=== PATIENT | female | born 1955 | race Caucasian/White ===

== ENCOUNTER 2016-11-08 11:41 | Emergency (ER) | payer OTHER ==
[~2016-11-08 11:41] MED LIST: B-CO1TAB29; CALC500C70 PO; CLB/200 PO; CYAN100048 IM; EFF75 PO; ERGO500037 PO; FERR1TAB39; MULT-506 PO; OMEP20CA9 PO
[2016-11-08 11:43] VITALS: TEMP 36.6; Ht 160 cm
[2016-11-08] MEDS ORDERED: CHOL100010 PO (11:56)
[2016-11-08] MEDS ORDERED: CARI350T28 PO (11:56)
[2016-11-08] MEDS ORDERED: SODIUM CHLORIDE 0.9% 1000ML 1,000 ML IV STA (12:12)
[2016-11-08] MEDS ORDERED: ONDANSETRON INJ 2 MG/ML 2 ML VIAL IV STA (12:12)
[2016-11-08] MEDS ORDERED: DEXAMETHASONE SOD INJ 10 MG/ML VIAL IV ONE (12:15)
--- NOTE | 2016-11-08 12:23 | EMERGENCY ROOM VISIT NOTE ---
History Report prepared by Andriy: Galina Smith Under the Supervision of: Wojciech RyanO. First contact with patient: 11:58 Chief Complaint: HEAD PAIN Stated Complaint: HEAD PAIN History of Present Illness The patient is a 61 year old female who presents to the Emergency Room with complaints of persistent neck pain that began 10 days ago. She currently rates her discomfort as a 10/10 in severity. The patient states that 10 days ago she started noticing neck pain and stiffness, but thought that it would go away, but it never did. She notes spasms, and that her pain worsens with movement. The patient states that her pain radiates up into her head and denies ever having pain like this in the past. She denies any fever, chills, ear ache, chest pain, shortness of breath, headache, nausea, or vomiting. The patient notes difficulty turning her neck secondary to pain. She denies any weakness or numbness in her arms and legs. The patient notes that she has a long history of chronic back problems. She states that she has had several surgeries and notes degenerative disc disease. The patient states that she has tried taking a muscle relaxer twice without relief of her symptoms, and has additionally tried heat and ice. The patient denies any recent injury. Source of History: patient Onset: 10 days ago Position: neck Symptom Intensity: 10/10 Quality: other (spasms) Timing: other (persistent) Modifying Factors (Worsening): movement Associated Symptoms: No SOB, No chest pain, No chills, No fevers, No headache, No nausea, No vomiting Review of Systems See HPI for pertinent positives & negatives. A total of 10 systems reviewed and were otherwise negative. Past Medical & Surgical Medical Problems: (1) Osteoarthritis Surgical Problems: (1) H/O cervical spine surgery (2) H/O: hysterectomy (3) History of appendectomy (4) Previous section (5) S/P gastric bypass (6) S/p total knee replacement, bilateral (7) Status post lumbar surgery Family History Cancer Diabetes mellitus Heart disease Hypertension Kidney disease Kidney stones Lung disease Social History Smoking Status: Former Smoker Smokeless Tobacco Use: No Alcohol Use: occasionally Marital Status: Housing Status: lives with family Occupation Status: other Current/Historical Medications Scheduled Calcium/Vitamin D (Os-M[place] 500 Plus D), 1 TAB PO DAILY Celecoxib (CeleBREX), 1 CAP PO DAILY Cholecalciferol (Vitamin D), 1 TAB PO DAILY Multivitamin (Multivitamin), 1 TAB PO DAILY Omeprazole (Prilosec), 1 CAP PO DAILY Prednisone (Prednisone Tab), 40 MG PO DAILY Venlafaxine Hcl (Effexor), 75 MG PO DAILY Scheduled PRN Carisoprodol (Soma), 350 MG PO DAILY PRN for Pain Oxycodone Immediate Rel Tab (Roxicodone Ir), 1-2 TAB PO Q4H PRN for Severe Pain Miscellaneous Medications B-Complex Vitamins (Vitamin B-Complex) Cyanocobalamin (Vitamin B-12) Ferrous Sulfate Dried (Feosol) Allergies Coded Allergies: Ciprofloxacin (Unverified Allergy, Mild, HIVES, 11/08/16) Physical Exam Vital Signs Date Time Temp Pulse Resp B/P Pulse Ox O2 Delivery O2 Flow Rate FiO2 11/08/16 13:36 102 18 143/83 94 Room Air 11/08/16 11:43 36.6 108 20 163/104 96 Room Air Physical Exam GENERAL: Patient is awake, alert, somewhat anxious and uncomfortable appearing. EYES: The conjunctivae are clear. The pupils are round and reactive. EARS, NOSE, MOUTH AND THROAT: The nose is without any evidence of any deformity. Mucous membranes are moist tongue is midline. TMs clear bilaterally. NECK: No anterior swelling or tenderness. Significant muscle spasm and tenderness over right perivertebral musculature. No midline tenderness noted. Range of motion is significantly decreased secondary to spasm. RESPIRATORY: Normal respiratory effort is noted there is no evidence of wheezing rhonchi or rales CARDIOVASCULAR: Regular rate and rhythm noted there no murmurs rubs or gallops normal S1 normal S2 GASTROINTESTINAL: The abdomen is soft. Bowel sounds are present in all quadrants. Abdomen is nontender PELVIS: The Pelvis is stable. No tenderness to palpation is noted. SKIN: There is no obvious evidence of any rash. There are no petechiae, pallor or cyanosis noted. NEUROLOGIC: Patient is awake alert and oriented x3 strength is symmetric patellar reflexes are 2+ bilaterally. No drift in upper extremity. Medical Decision & Procedures ER Provider Diagnostic Interpretation: Radiology results as stated below per my review and radiologist interpretation: HEAD CT NONCONTRAST CT DOSE: 1124.95 mGy.cm HISTORY: right sided pain TECHNIQUE: Multiaxial CT images of the head were performed without the use of intravenous contrast. Automated exposure control was utilized for this study. Comparison: None. Findings: The paranasal sinuses and mastoid air cells are clear. The calvarium and skull base are intact. The ventricles and sulci are within normal limits. There is no mass, hematoma, midline shift, or acute infarct. Impression: No acute intracranial abnormality. Electronically signed by: Eric Melissa M.D. 11/08/2016 1:13 PM Dictated Date/Time: 11/08/2016 1:[address] OF THE CERVICAL SPINE WITHOUT CONTRAST CLINICAL HISTORY: Right sided neck pain. COMPARISON STUDY: No previous studies for comparison. TECHNIQUE: Helical axial images of the cervical spine were obtained without IV contrast. Sagittal and coronal reconstructions were viewed. FINDINGS: There is reversal of the normal cervical lordosis. There is no acute fracture or suspicious lesion within the cervical spine by CT. There is slight anterolisthesis of C3 on C4. There is fusion of the C4, C5 and C6 vertebra. There finds consistent with a C6-C7 anterior discectomy and fusion as well as a posterior C6-C7 fusion. Hardware is intact. There is no prevertebral edema. No pneumothorax is shown within visualized portions of the lung apices. The central canal and neural foramen are suboptimally assessed by CT. There is moderate multilevel facet arthrosis. IMPRESSION: 1. No acute cervical spine fracture or subluxation. 2. Status post C6-C7 anterior discectomy and fusion and C6-C7 posterior fusion. 3. Fusion of the C4, C5 and C6 vertebral bodies. 4. Reversal of the normal cervical doses. 5. Moderate multilevel facet arthrosis. Suboptimal evaluation of the central canal and neural foramen given CT technique. Electronically signed by: Neil Fountain M.D. 11/08/2016 1:16 PM Dictated Date/Time: 11/08/2016 1:10 PM Laboratory Results 11/08/16 12:24 Red Blood Count 4.41, Mean Corpuscular Volume 90.7, Mean Corpuscular Hemoglobin 30.4, Mean Corpuscular Hemoglobin Concent 33.5, Mean Platelet Volume 9.4, Neutrophils (%) (Auto) 74.7, Lymphocytes (%) (Auto) 18.3, Monocytes (%) (Auto) 5.0, Eosinophils (%) (Auto) 1.6, Basophils (%) (Auto) 0.3, Neutrophils # (Auto) 5.98, Lymphocytes # (Auto) 1.46, Monocytes # (Auto) 0.40, Eosinophils # (Auto) 0.13, Basophils # (Auto) 0.02 11/08/16 12:24 Test 11/08/16 12:24 White Blood Count 8.00 K/uL (4.8-10.8) Red Blood Count 4.41 M/uL (4.2-5.4) Hemoglobin 13.4 g/dL (12.0-16.0) Hematocrit 40.0 % (37-47) Mean Corpuscular Volume 90.7 fL (80-100) Mean Corpuscular Hemoglobin 30.4 pg (25-34) Mean Corpuscular Hemoglobin Concent 33.5 g/dl (32-36) Platelet Count 245 K/uL (130-400) Mean Platelet Volume 9.4 fL (7.4-10.4) Neutrophils (%) (Auto) 74.7 % Lymphocytes (%) (Auto) 18.3 % Monocytes (%) (Auto) 5.0 % Eosinophils (%) (Auto) 1.6 % Basophils (%) (Auto) 0.3 % Neutrophils # (Auto) 5.98 K/uL (1.4-6.5) Lymphocytes # (Auto) 1.46 K/uL (1.2-3.4) Monocytes # (Auto) 0.40 K/uL (0.11-0.59) Eosinophils # (Auto) 0.13 K/uL (0-0.5) Basophils # (Auto) 0.02 K/uL (0-0.2) RDW Standard Deviation 44.3 fL (36.4-46.3) RDW Coefficient of Variation 13.3 % (11.5-14.5) Immature Granulocyte % (Auto) 0.1 % Immature Granulocyte # (Auto) 0.01 K/uL (0.00-0.02) Erythrocyte Sedimentation Rate 12 mm/hr (0-21) Anion Gap 7.0 mmol/L (3-11) Estimated GFR () 85.1 Estimated GFR (Non- 73.4 BUN/Creatinine Ratio 16.9 (10-20) Calcium Level 9.2 mg/dl (8.5-10.1) Total Bilirubin 0.4 mg/dl (0.2-1) Direct Bilirubin < 0.1 mg/dl (0-0.2) Aspartate Amino Transf (AST/SGOT) 13 U/L (15-37) Alanine Aminotransferase (ALT/SGPT) 23 U/L (12-78) Alkaline Phosphatase 95 U/L (45-117) C-Reactive Protein < 0.29 mg/dl (0-0.29) Total Protein 7.6 gm/dl (6.4-8.2) Albumin 4.0 gm/dl (3.4-5.0) Laboratory results per my review. Medications Administered Medications (Trade) Dose Ordered Sig/Alethea Route Start Time Stop Time Status Last Admin Dose Admin Sodium Chloride (Nss 1000ml) 1,000 ml @ 200 mls/hr Q5H STAT IV 11/08/16 12:12 11/08/16 14:19 DC 11/08/16 12:32 200 MLS/HR Dexamethasone Sodium Phosphate (Decadron Inj) 10 mg NOW ONCE IV 11/08/16 12:15 11/08/16 12:16 DC 11/08/16 12:32 10 MG Morphine Sulfate (MoRPHine SULFATE INJ) 4 mg Q15M PRN IV 11/08/16 12:15 11/08/16 14:19 DC 11/08/16 13:33 4 MG Ondansetron HCl (Zofran Inj) 4 mg NOW STAT IV 11/08/16 12:12 11/08/16 12:14 DC 11/08/16 12:32 4 MG Diphenhydramine HCl (Benadryl Cap) 25 mg NOW ONCE PO 11/08/16 13:45 11/08/16 13:46 DC 11/08/16 13:49 25 MG ED Course 1208: The patient was evaluated in room B9. A complete history and physical examination were performed. 1212: Ordered Zofran Inj 4 mg IV, Sodium Chloride 1000 ml @ 200 mls/hr IV. 1215: Ordered Morphine Sulfate 4 mg IV, Decadron Inj 10 mg IV. 1254: Ordered Morphine Sulfate 4 mg IV. 1255: I reevaluated the patient and she is feeling better. She is going over for her CT scan. 1333: Upon reevaluation, the patient is resting comfortably. I discussed the results and treatment plan with her. She verbalized agreement of the treatment plan. The patient was discharged home. Morphine Sulfate 4 mg IV. 1345: Ordered Benadryl Cap 25 mg PO. Medical Decision Differential diagnosis: Etiologies such as migraine headache, meningitis, sinusitis, CO exposure, ICH, SAH, infection, tumor, headache, sinus thrombosis, arterial dissection, as well as others were entertained. Nursing notes reviewed. The patient is a 61-year-old female who presented to the emergency department for an evaluation of right-sided pain. Patient has a history of surgical procedure on the neck in the past. She did not have any focal neurologic deficit. She was able to ambulate without difficulty. She appeared to have very significant muscle spasm and tenderness over the right paravertebral muscle bodies. The patient had a CAT scan of the cervical spine to evaluate for any bony abnormality. She does have significant degenerative disc disease. The patient was treated with IV fluids IV pain medicine and IV steroids. On subsequent reevaluation she was feeling much better. I discussed the patient's laboratory and radiographic studies with her. She was encouraged to rest and avoid any strenuous activity. She was also encouraged to continue all medications as prescribed. She was also encouraged to follow-up with primary care physician for further evaluation and for possible MRI the cervical spine if symptoms do not improve. Otherwise she was encouraged to return to emergency department immediately if symptoms change worsen or the need arises. Impression Primary Impression: Cervical muscle strain Additional Impression: Cervical paraspinal muscle spasm Scribe Attestation The scribe's documentation has been prepared under my direction and personally reviewed by me in its entirety. I confirm that the note above accurately reflects all work, treatment, procedures, and medical decision making performed by me. Departure Information Dispostion Home / Self-Care Prescriptions Prednisone (Prednisone Tab) 20 Mg Tab 40 MG PO DAILY, #10 TAB Prov: Bhaskar Love, DO 11/08/16 Oxycodone Immediate Rel Tab (ROXICODONE IR) 5 Mg Tab 1-2 TAB PO Q4H Y for Severe Pain, #24 TAB Prov: Bhaskar Love, DO 11/08/16 Referrals Jp Jacobs M.D. (PCP) Forms HOME CARE DOCUMENTATION FORM, IMPORTANT VISIT INFORMATION, WORK / SCHOOL INSTRUCTIONS Patient Instructions My [facility], Neck Strain - [facility] Additional Instructions Continue all medications as prescribed. Rest and avoid any strenuous activity. Follow-up with your doctor this week for reevaluation. If symptoms do not improve or if they worsen you may require other studies such as an MRI the neck to further evaluate the cause of her pain. Problem Qualifiers Primary Impression: Cervical muscle strain Encounter type: initial encounter Qualified Codes: S16.1XXA - Strain of muscle, fascia and tendon at neck level, initial encounter
[2016-11-08 12:32] LABS: BASO % 0.3 %; BASO ABS # 0.02 K/uL (0-0.2); COMPLETE YES; EOS % 1.6 %; IG% 0.1 %; LYMPH % 18.3 %; LYMPH ABS # 1.46 K/uL (1.2-3.4); MEAN CELL VOLUME 90.7 fL (80-100); MEAN CORPUSCULAR HEMOGLOBIN 30.4 pg (25-34); MEAN CORPUSCULAR HGB CONC 33.5 g/dl (32-36); MEAN PLATELET VOLUME 9.4 fL (7.4-10.4); NEUT % 74.7 %; PLATELET COUNT 245 K/uL (130-400); RED BLOOD COUNT 4.41 M/uL (4.2-5.4)
[2016-11-08] MEDS: MoRPHine SULFATE 4 MG/ML 1 ML CARP\\VIAL IV PRN ×3 (12:32→13:33)
[2016-11-08 12:55] LABS: ALT/SGPT 23 U/L (12-78); AST/SGOT 13 U/L (15-37); BLOOD UREA NITROGEN 15 mg/dl (7-18); BUN/CREATININE RATIO 16.9 (10-20); CALCIUM 9.2 mg/dl (8.5-10.1); CARBON DIOXIDE 26 mmol/L (21-32); CHLORIDE 107 mmol/L (98-107); CREATININE 0.86 mg/dl (0.60-1.20); GLUCOSE 103 mg/dl (70-99); POTASSIUM 4.3 mmol/L (3.5-5.1); SODIUM 140 mmol/L (136-145)
[2016-11-08 12:58] LABS: ALKALINE PHOSPHATASE 95 U/L (45-117); C-REACTIVE PROTEIN < 0.29 mg/dl (0-0.29)
--- NOTE | 2016-11-08 13:14 | DIAGNOSTIC IMAGING REPORT ---
HEAD CT NONCONTRAST CT DOSE: 1124.95 mGy.cm HISTORY: right sided pain TECHNIQUE: Multiaxial CT images of the head were performed without the use of intravenous contrast. Automated exposure control was utilized for this study. Comparison: None. Findings: The paranasal sinuses and mastoid air cells are clear. The calvarium and skull base are intact. The ventricles and sulci are within normal limits. There is no mass, hematoma, midline shift, or acute infarct. Impression: No acute intracranial abnormality. Electronically signed by: Eric Melissa M.D. 11/08/2016 1:13 PM Dictated Date/Time: 11/08/2016 1:10 PM
--- NOTE | 2016-11-08 13:18 | DIAGNOSTIC IMAGING REPORT ---
CT OF THE CERVICAL SPINE WITHOUT CONTRAST CLINICAL HISTORY: Right sided neck pain. COMPARISON STUDY: No previous studies for comparison. TECHNIQUE: Helical axial images of the cervical spine were obtained without IV contrast. Sagittal and coronal reconstructions were viewed. FINDINGS: There is reversal of the normal cervical lordosis. There is no acute fracture or suspicious lesion within the cervical spine by CT. There is slight anterolisthesis of C3 on C4. There is fusion of the C4, C5 and C6 vertebra. There finds consistent with a C6-C7 anterior discectomy and fusion as well as a posterior C6-C7 fusion. Hardware is intact. There is no prevertebral edema. No pneumothorax is shown within visualized portions of the lung apices. The central canal and neural foramen are suboptimally assessed by CT. There is moderate multilevel facet arthrosis. IMPRESSION: 1. No acute cervical spine fracture or subluxation. 2. Status post C6-C7 anterior discectomy and fusion and C6-C7 posterior fusion. 3. Fusion of the C4, C5 and C6 vertebral bodies. 4. Reversal of the normal cervical doses. 5. Moderate multilevel facet arthrosis. Suboptimal evaluation of the central canal and neural foramen given CT technique. Electronically signed by: Neil Fountain M.D. 11/08/2016 1:16 PM Dictated Date/Time: 11/08/2016 1:10 PM
[2016-11-08] MEDS ORDERED: OXYC1TAB3 PO (13:31)
[2016-11-08] MEDS ORDERED: PRED20TA2 PO (13:31)
[2016-11-08 13:36] VITALS: BP 143/83; PULSE 102; O2SAT 94
[2017-01-26] MEDS ORDERED: MELO7.5T5 PO (14:32)
[2017-01-26] MEDS ORDERED: ZINC1CAP (14:32)
[2017-01-26] MEDS ORDERED: HYG/25 PO (14:32)
[2017-01-26] MEDS ORDERED: ASPI81TA28 PO (14:32)
[2017-01-26] MEDS ORDERED: ATOR-22 PO (14:32)
[2017-01-26] MEDS ORDERED: AMT50 PO (14:33)
== END 2016-11-08 13:54 | disposition home or self-care (01) ==
LOC: C.EDB 11:43
DX: S16.1XXA Strain of muscle, fascia and tendon at neck level, initial encounter (principal); M62.838 Other muscle spasm; M19.90 Unspecified osteoarthritis, unspecified site; X58.XXXA Exposure to other specified factors, initial encounter; Z90.710 Acquired absence of both cervix and uterus; Z95.1 Presence of aortocoronary bypass graft; Z96.653 Presence of artificial knee joint, bilateral; Z83.3 Family history of diabetes mellitus; Z82.49 Family history of ischemic heart disease and other diseases of the circulatory system; Z87.891 Personal history of nicotine dependence; Z79.899 Other long term (current) drug therapy